=== PATIENT | female | born 1985 | race Asian ===

== ENCOUNTER 2019-07-29 01:10 | Emergency (ER) | payer MEDICAID ==
[~2019-07-29] VITALS: Ht 165.1 cm; Wt 59.0 kg
[2019-07-29] MEDS ORDERED: HYDROCODONE/ACETAMINOPHEN 5/325MG TABLET PO ONE (03:45)
[2019-07-29 06:57] VITALS: BP 110/81
== END 2019-07-29 06:58 | disposition home or self-care (01) ==
LOC: ER 01:10
DX: M25.561 Pain in right knee (principal)
CPT/HCPCS: 29505; 73562; 99283